=== PATIENT | female | born 1955 | race Two or more races ===

== ENCOUNTER 2021-01-17 12:14 | Emergency (ER) | payer OTHER ==
[~2021-01-17] VITALS: Ht 175.3 cm; Wt 95.3 kg
[2021-01-17] MEDS ORDERED: GLYBURIDE-METF1 EACH PO (12:20)
[2021-01-17] MEDS ORDERED: COZAAR50 MG PO (14:24)
== END 2021-01-17 14:27 | disposition home or self-care (01) ==
LOC: ER 12:14
DX: H11.32 Conjunctival hemorrhage, left eye (principal); I10 Essential (primary) hypertension